=== PATIENT | male | born 1975 | race Caucasian/White ===

== ENCOUNTER 2018-06-14 05:02 | Emergency (ER) | payer OTHER ==
[2018-06-14 05:07] VITALS: RESP 20
[2018-06-14] MEDS ORDERED: KETOROLAC 30 MG/ML 1 ML VIAL IVP STA (05:46)
[2018-06-14] MEDS ORDERED: ONDANSETRON 4 MG/2 ML VIAL IVP STA (05:46)
--- NOTE | 2018-06-14 06:11 | ED ---
General Adult HPI - General Chief complaint: Shortness of Breath Stated complaint: SOB, back pain Time Seen by Provider: 06/14/18 06:11 Source: patient Mode of arrival: ambulatory Limitations: no limitations - History of Present Illness Initial comments: Celio is a 43-year-old male who presents the emergency department today for sudden onset of left-sided flank pain with associated nausea and feeling as though he couldn't catch his breath. Patient reports that he woke around 3 AM to use the restroom, nearly immediately after waking he felt stabbing pain in his left flank. He reports he tried to get comfortable at home for over an hour but clinic at which time he asked his to bring him the hospital for evaluation. Patient describes the pain as a stabbing in his left flank radiating to his groin. Pain is associated with nausea. Patient reports the pain is 10 out of 10 intensity upon arrival. Her spirits pain like this in the past though his has had kidney stones he reports he feels like she did when she had a kidney stone. - Related Data Previous Rx's Medication Instructions Recorded HYDROcodone/APAP 5-325MG [[place] 1 tab PO Q6HR PRN 3 Days #8 tab 06/14/18 5-325] Ondansetron [Zofran ODT] 4 mg PO Q8HR #12 tab 06/14/18 Tamsulosin [Flomax] 0.4 mg PO DAILY #7 cap 06/14/18 Allergies Allergy/AdvReac Type Severity Reaction Status Date / Time No Known Allergies Allergy Verified 06/14/18 05:07 Review of Systems ROS Statement: Those systems with pertinent positive or pertinent negative responses have been documented in the HPI. ROS Other: All systems not noted in ROS Statement are negative. Past Medical History Past Medical History: Hyperlipidemia, Hypertension History of Any Multi-Drug Resistant Organisms: None Reported Past Surgical History: Hernia Repair Additional Past Surgical History / Comment(s): ORIF right wrist. Past Psychological History: No Psychological Hx Reported Smoking Status: Never smoker Past Alcohol Use History: Occasional Past Drug Use History: None Reported General Exam - General Exam Comments Initial Comments: Physical Exam GENERAL: Patient writhing in pain unable to find a comfortable position HENT: Normocephalic, Atraumatic. EYES: PERRL, EOMI PULMONARY: Unlabored respirations. No audible rales rhonchi or wheezing was noted. CARDIOVASCULAR: There is a regular rate and rhythm without any murmurs gallops or rubs. ABDOMEN: Soft and nontender with normal bowel sounds. SKIN: Skin is clear with no lesions or rashes and otherwise unremarkable. : Deferred NEUROLOGIC: Patient is alert and oriented x3. Moving all extremities spontaneously MUSCULOSKELETAL: Normal extremities with adequate strength and full range of motion. No lower extremity swelling or edema. No calf tenderness. PSYCHIATRIC: Normal psychiatric evaluation. Limitations: no limitations Limitations: no limitations Course Vital Signs 06/14/18 06/14/18 05:04 07:03 Temperature 98.3 F Pulse Rate 81 74 Respiratory 20 20 Rate Blood Pressure 178/105 137/56 O2 Sat by Pulse 97 96 Oximetry - Reevaluation(s) Reevaluation #1: Patient was reevaluated and reports resolution of pain after Toradol 06/14/18 06:29 Medical Decision Making - Medical Decision Making She was seen and evaluated history and physical exam concerning for left sided flank pain likely kidney stone Labs and imaging ordered Toradol ordered for pain Patient reports resolution of pain after Toradol Labs with CASSIA - Cr 1.3 CT reveals left sided kidney stone at UVJ approximatley 3-4mm, mild hydro Patient was updated on results. Agreeable to plan for discharge home. Medications ordered Return parameters discussed, patient discharged home in stable condition. - Lab Data Result diagrams: 06/14/18 05:52 06/14/18 05:52 Lab Results 06/14/18 06/14/18 Range/Units 05:52 05:52 WBC 8.8 (3.8-10.6) k/uL RBC 5.42 (4.30-5.90) m/uL Hgb 16.6 (13.0-17.5) gm/dL Hct 48.3 (39.0-53.0) % MCV 89.2 (80.0-100.0) fL MCH 30.7 (25.0-35.0) pg MCHC 34.5 (31.0-37.0) g/dL RDW 13.1 (11.5-15.5) % Plt Count 211 (150-450) k/uL Neutrophils % 65 % Lymphocytes % 25 % Monocytes % 5 % Eosinophils % 2 % Basophils % 1 % Neutrophils # 5.7 (1.3-7.7) k/uL Lymphocytes # 2.2 (1.0-4.8) k/uL Monocytes # 0.5 (0-1.0) k/uL Eosinophils # 0.2 (0-0.7) k/uL Basophils # 0.1 (0-0.2) k/uL Sodium 137 (137-145) mmol/L Potassium 4.7 (3.5-5.1) mmol/L Chloride 102 (98-107) mmol/L Carbon Dioxide 26 (22-30) mmol/L Anion Gap 9 mmol/L BUN 23 H (9-20) mg/dL Creatinine 1.30 H (0.66-1.25) mg/dL Est GFR (CKD-EPI)AfAm 78 (>60 ml/min/1.73 sqM) Est GFR (CKD-EPI)NonAf 67 (>60 ml/min/1.73 sqM) Glucose 147 H (74-99) mg/dL Calcium 9.5 (8.4-10.2) mg/dL Total Bilirubin 0.9 (0.2-1.3) mg/dL AST 43 (17-59) U/L ALT 77 H (21-72) U/L Alkaline Phosphatase 57 (38-126) U/L Total Protein 7.7 (6.3-8.2) g/dL Albumin 4.8 (3.5-5.0) g/dL Amylase 129 H (30-110) U/L Lipase 65 (23-300) U/L Disposition Clinical Impression: Kidney stone on left side Disposition: HOME SELF-CARE Condition: Stable Instructions (If sedation given, give patient instructions): Kidney Stones (ED) Prescriptions: HYDROcodone/APAP 5-325MG [[place] 5-325] 1 tab PO Q6HR PRN 3 Days #8 tab PRN Reason: Pain Ondansetron [Zofran ODT] 4 mg PO Q8HR #12 tab Tamsulosin [Flomax] 0.4 mg PO DAILY #7 cap Is patient prescribed a controlled substance at d/c from ED?: Yes When asked, does pt state using other controlled substances?: No If prescribed controlled substance>3 days was MAPS reviewed?: Prescribed <3 Days Referrals: Craig Connor DO [Primary Care Provider] - 1-2 days Time of Disposition: 07:27
[2018-06-14] MEDS ORDERED: SODIUM CHLORIDE 0.9% 1,000 ML IV STA (06:35)
[2018-06-14 06:41] LABS: Basophils # (A) 0.1 k/uL (0-0.2); Basophils % (A) 1 %; Eosinophils # (A) 0.2 k/uL (0-0.7); Eosinophils % (A) 2 %; HCT 48.3 % (39.0-53.0); HGB 16.6 gm/dL (13.0-17.5); Lymphocytes # (A) 2.2 k/uL (1.0-4.8); Lymphocytes % (A) 25 %; MCH 30.7 pg (25.0-35.0); MCHC 34.5 g/dL (31.0-37.0); MCV 89.2 fL (80.0-100.0); Mean Platelet Volume 8.9; Monocytes # (A) 0.5 k/uL (0-1.0); Monocytes % (A) 5 %; Neutrophils # (A) 5.7 k/uL (1.3-7.7); Neutrophils % (A) 65 %; Platelet Count 211 k/uL (150-450); RBC 5.42 m/uL (4.30-5.90); RDW 13.1 % (11.5-15.5); WBC 8.8 k/uL (3.8-10.6)
[2018-06-14 06:43] LABS: Albumin 4.8 g/dL (3.5-5.0); Calcium 9.5 mg/dL (8.4-10.2); Potassium 4.7 mmol/L (3.5-5.1); Total Bilirubin 0.9 mg/dL (0.2-1.3); Total Protein 7.7 g/dL (6.3-8.2)
[2018-06-14 07:04] VITALS: BP 137/56; PULSE 74
--- NOTE | 2018-06-14 07:33 | CT ---
ADDENDUM - Added by Lokesh Knight MD on 06/14/2018 5:09 PM (-08:00) CTDI 14 / DLP 908 EXAM: CT Abdomen and Pelvis Without Intravenous Contrast, Renal Stone Protocol CLINICAL HISTORY: ITS.REASON CT Reason: Pain TECHNIQUE: Axial computed tomography images of the abdomen and pelvis without intravenous contrast using renal stone protocol. This CT exam was performed using one or more of the following dose reduction techniques: automated exposure control, adjustment of the mA and/or kV according to patient size, and/or use of iterative reconstruction technique. COMPARISON: No relevant prior studies available. FINDINGS: Lower thorax: Unremarkable as visualized. ABDOMEN: Liver: Unremarkable. Gallbladder and bile ducts: Cholelithiasis. No ductal dilation. Pancreas: Unremarkable. No ductal dilation. Spleen: Unremarkable. No splenomegaly. Adrenals: Unremarkable. No mass. Right kidney and ureter: Unremarkable. No obstructing stones. No hydronephrosis. Left kidney and ureter: 3 mm left UVJ stone with mild hydronephrosis. Stomach and bowel: Unremarkable. No obstruction. No mucosal thickening. PELVIS: Appendix: No findings to suggest acute appendicitis. Bladder: Unremarkable. No stones. Reproductive: Unremarkable as visualized. ABDOMEN and PELVIS: Intraperitoneal space: Unremarkable. No free air. No significant fluid collection. Bones/joints: Unremarkable. No acute fracture. No dislocation. Soft tissues: Unremarkable. Vasculature: Unremarkable. No abdominal aortic aneurysm. Lymph nodes: Unremarkable. No enlarged lymph nodes. IMPRESSION: 3 mm left UVJ stone with mild hydronephrosis.
[2018-06-14 07:38] VITALS: TEMP 98.1
== END 2018-06-14 07:38 | disposition home or self-care (01) ==
LOC: EC 05:02
DX: N13.2 Hydronephrosis with renal and ureteral calculous obstruction (principal); R06.02 Shortness of breath; Z98.890 Other specified postprocedural states
CPT/HCPCS: 36415; 80053; 82150; 83690; 85025; 74150; 99285; 96374; 96375; 96361; J2405; J1885